=== PATIENT | female | born 1945 | race Caucasian/White ===

== ENCOUNTER → 2019-10-26 | Outpatient (CLI) | payer OTHER | LOC: M.CT 12:35 | DX: K76.0 Fatty (change of) liver, not elsewhere classified (principal); J94.8 Other specified pleural conditions; E07.89 Other specified disorders of thyroid; E04.2 Nontoxic multinodular goiter; K44.9 Diaphragmatic hernia without obstruction or gangrene; Z90.49 Acquired absence of other specified parts of digestive tract ==

== ENCOUNTER → 2020-01-20 | Outpatient (CLI) | payer OTHER | LOC: M.LAB 11:46 | DX: E04.1 Nontoxic single thyroid nodule (principal) ==

== ENCOUNTER → 2020-02-09 | Outpatient (CLI) | payer OTHER | LOC: M.RAD 13:28 | DX: R05 Cough (principal) ==

== ENCOUNTER → 2020-03-27 | Outpatient (CLI) | payer OTHER | LOC: M.LAB 13:49 | PROVIDERS: ATTEND Specialist | DX: E04.1 Nontoxic single thyroid nodule (principal) ==

== ENCOUNTER → 2020-06-09 | Outpatient (CLI) | payer OTHER | LOC: M.LAB 12:11 | PROVIDERS: ATTEND Specialist | DX: E89.0 Postprocedural hypothyroidism (principal) ==

== ENCOUNTER → 2020-07-24 | Outpatient (CLI) | payer OTHER ==
[2020-07-24 13:54] LABS: CALCIUM 8.4 mg/dL (8.5-10.1); PHOSPHORUS* 3.2 mg/dL (2.5-4.9)
== END ==
LOC: M.LAB 13:15
PROVIDERS: ATTEND Specialist
DX: Z09 Encounter for follow-up examination after completed treatment for conditions other than malignant neoplasm (principal)

== ENCOUNTER → 2020-10-27 | Outpatient (CLI) | payer OTHER | LOC: M.LAB 12:39 | PROVIDERS: ATTEND Specialist | DX: Z90.09 Acquired absence of other part of head and neck (principal) ==

== ENCOUNTER 2020-11-27 01:03 | Observation (INO) | payer OTHER ==
[~2020-11-27] VITALS: Ht 172.7 cm; Wt 88.5 kg
[2020-11-27] MEDS ORDERED: FAMOTIDINE (01:24)
[2020-11-27] MEDS ORDERED: LOSARTAN (01:24)
[2020-11-27] MEDS ORDERED: LEVOTHYROXINE (01:24)
[2020-11-27] MEDS ORDERED: TRAZODONE (01:25)
[2020-11-27 01:26] VITALS: BP 189/78
[2020-11-27 02:33] LABS: ABSOLUTE BASOPHILS 0.1 thou/uL (0.0-0.2); ABSOLUTE EOSINOPHILS 0.1 thou/uL (0.0-0.7); ABSOLUTE LYMPHOCYTES 3.4 thou/uL (0.8-5.3); ABSOLUTE MONOCYTES 0.5 thou/uL (0.0-1.2); ABSOLUTE NEUTROPHILS 4.9 thou/uL (1.6-8.1); BASOPHILS 0.6 %; EOSINOPHILS 1.6 %; HEMOGLOBIN 13.4 gm/dL (12.0-15.0); MCH 29.3 pg (26.0-34.0); MCHC 33.5 g/dL (28.0-37.0); MCV 87.5 fL (80.0-100.0); MONOCYTES 5.2 %; MPV 8.1 fl. (7.2-11.1); NUCLEATED RBCS 0 /100WBC; PLATELET COUNT* 211 thou/uL (150-400); POLYS 54.6 %; RBC 4.57 mil/uL (4.20-5.00); RDW-CV 14.4 % (10.5-14.5); WBC 8.9 thou/uL (4.0-11.0)
[2020-11-27 02:35] LABS: CALCIUM 9.4 mg/dL (8.5-10.1)
[2020-11-27 02:38] LABS: APTT 24.6 Seconds (25.0-31.3); PROTIME 10.2 Seconds (9.20-11.50)
[2020-11-27 02:39] LABS: ALBUMIN 3.9 g/dL (3.4-5.0); TOTAL BILIRUBIN 0.3 mg/dL (<0.1-1.0); TOTAL PROTEIN 8.1 g/dL (6.4-8.2)
[2020-11-27 08:27] VITALS: BP 189/86
[2020-11-27 12:30] VITALS: BP 153/57; BP 189/86
[2020-11-27 14:48] VITALS: BP 169/60
[2020-11-27 15:54] VITALS: BP 126/60
--- NOTE | 2020-11-27 17:36 | EKG ---
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 : 1945 Requested By: Lori Abebe Order Number: [id number] MD: Sami Baca Measurements Intervals [place] Rate: 80 P: -32 TN: 146 QRS: 58 QRSD: 157 T: 262 QT: 498 QTc: 575 Interpretive Statements Atrial fibrillation Right bundle branch block Abnormal T, consider ischemia, lateral leads No previous ECG available for comparison Electronically Signed On 11-27-2020 17:36:31 CDT by Sami Baca [email or web address] <ELECTRONICALLY SIGNED> By: Sami Baca MD, FACC 11/27/20 1736 0114 0114 Sami Baca MD, [facility] /EPI
--- NOTE | 2020-11-27 17:36 | EKG ---
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 Gonzales : 1945 Requested By: Lori Abebe Order Number: [id number] MD: Boubacar Walden Measurements Intervals [place] Rate: 75 P: 106 VT: 191 QRS: 52 QRSD: 148 T: 187 QT: 446 QTc: 499 Interpretive Statements Sinus rhythm with PACs Right bundle branch block Abnormal T, consider ischemia, lateral leads Compared to ECG 11/27/2020 01:14:25 No significant changes Electronically Signed On 11-27-2020 17:35:57 CDT by Boubacar Walden [email or web address] <ELECTRONICALLY SIGNED> By: Boubacar Walden MD, FAC 11/27/20 1735 4 4 Boubacar Walden MD, [facility] /EPI
--- NOTE | 2020-11-27 17:39 | EKG ---
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 : 1945 Requested By: Natasha Valle Order Number: [id number] MD: Boubacar Walden Measurements Intervals [place] Rate: 63 P: 61 PA: 182 QRS: 54 QRSD: 149 T: 184 QT: 476 QTc: 488 Interpretive Statements Sinus rhythm Atrial premature complexes Right bundle branch block Repol abnrm suggests ischemia, lateral leads Compared to ECG 11/27/2020 02:05:52 Atrial premature complex(es) now present Early repolarization now present Possible ischemia still present Electronically Signed On 11-27-2020 17:38:53 CDT by Boubacar Walden [email or web address] <ELECTRONICALLY SIGNED> By: Boubacar Walden MD, [facility] 11/27/20 1738 1254 1254 Boubacar Walden MD, [facility] /EPI
[2020-11-27 20:00] VITALS: BP 127/66
[2020-11-28] VITALS: BP 152/65
[2020-11-28 04:09] VITALS: BP 130/51
[2020-11-28 04:25] LABS: CREATININE 0.9 mg/dL (0.6-1.3); POTASSIUM 4.2 mmol/L (3.5-5.1)
[2020-11-28 04:38] LABS: HEMATOCRIT 37.6 % (37.0-47.0); HEMOGLOBIN 12.7 gm/dL (12.0-15.0); MCH 29.4 pg (26.0-34.0); MCHC 33.7 g/dL (28.0-37.0); MCV 87.2 fL (80.0-100.0); MPV 8.2 fl. (7.2-11.1); RBC 4.31 mil/uL (4.20-5.00); RDW-CV 14.3 % (10.5-14.5); WBC 6.6 thou/uL (4.0-11.0)
[2020-11-28 08:00] VITALS: BP 128/50
[2020-11-28] MEDS ORDERED: NORVASC5 MG PO (08:49)
--- NOTE | 2020-11-28 14:08 | CARDNUC ---
[place] [address] CARDIAC NUCLEAR IMAGING REPORT Name: GUERREROSEDRICK Room: [address] Abad#: [id number] Admission: 11/27/20 Attend Phys: Jonathan Noble Discharge: Date of : 47 Date of Service: 11/28/20 1407 Report #: [id number] THIS REPORT FOR: cc: Jackson Boggs MD, Tuongvan T. MD Liston, Michael J. MD [facility] ~ APPROVED REPORT Imaging Protocol: Stress Tc-99m/Rest Tc-99m 2 days Study performed: 11/27/2020 12:51:00 Indication: CHEST PAIN/ TIGHTNESS, HYPERTENSIVE URGENCY Patient Location: In-Patient Room #: 232 Stress Tech: Isela Rios Stress Nurse: Christina Moy RN Ht: 5 ft 8 in Wt: 195 lbs BSA: 2.02 m2 BMI: 29.64 Medical History Medical History: Chest pain/tightness, RBBB, Hypertensive Urgency, HTN, HLD, current smoker, strong family HX CAD-PA, anxiety/anxious, bad hip and knees with pain and weakness. Medications: AMLODIPINE, COZAAR, NTG, ASA 81MG Allergies: [facility] Cardiac Risk Factors: Age, Current Smoker, FHX of CAD, Hyperlipidemia, HTN, RBBB. Previous Cardiac Procedures: None Pretest Chest Pain Characteristics: No chest pain Exercise History: Indeterminate Physical Disabilities: Bad hip and knees with pain and weakness. Meds Held (24 hrs): NTG Resting Data Rest SPECT myocardial perfusion imaging was performed in supine position 30 minutes following the intravenous injection of 29.9 mCi of Tc-99m Sestamibi. Time of rest injection: 13:45 Date: 11/27/2020 The images were gated to evaluate regional wall motion and calculate left ventricular ejection fraction. Administration Route: [place] [address] CARDIAC NUCLEAR IMAGING REPORT Name: GUERREROSEDRICK [address] [id number] Admission: 11/27/20 Attend Phys: Jonathan Noble Discharge: Date of : 47 Date of Service: 11/28/20 1407 Report #: [id number] Pharmacologic stress test was performed by injecting Regadenoson 0.4 mg IV push over 10-15 seconds immediately followed by the intravenous injection of 35.0 mCi of Tc-99m Sestamibi. Time of stress injection: 10:25 Date: 11/28/2020 Administration Route: IV Administration Site: Left AC Heart Rate at time of stress injection: 90 bpm. Gated Stress SPECT was performed 45 minutes after stress injection. The images were gated to evaluate regional wall motion and calculate left ventricular ejection fraction. Stress Test Details Stress Test: Pharmacologic stress testing performed using 0.4 mg of regadenoson per 5 mL given IV over 10 seconds. Reason for pharmacologic stress test: Bad hip and knees with pain and weakness.. HR Max Heart Rate (APMHR): 146 bpm Resting HR: 70 bpm Target HR (85% APMHR): 124 bpm Max HR Achieved: 92 bpm % of APMHR: 63 Recovery HR: 70 bpm BP Resting BP: 135/65 mmHg Max BP: 97/46 mmHg Recovery BP: 110/55 mmHg ECG Resting ECG: Sinus Rhythm, LVH with repolarization changes Stress ECG: Sinus Rhythm, LVH with repolarization changes ST Change: None Arrhythmia: None Recovery ECG: Sinus Rhythm, LVH with repolarization changes Recovery ST Change: None Recovery Arrhythmia: None Clinical Reason for Termination: Completed protocol Stress Symptoms: labored breathing, flushed, anxious, lightheadedness. Exercise duration: 00 min 00 sec Exercise capacity: 1.00 [place] [address] CARDIAC NUCLEAR IMAGING REPORT Name: GUERREROSEDRICK M[place]illa Room: [address] MProsperRProsper#: [id number] Admission: 11/27/20 Attend Phys: Jonathan Noble Discharge: Date of : 47 Date of Service: 11/28/20 1407 Report #: [id number] The Patient Tolerated Lexiscan Infusion without Significant Cardiac Symptoms. Nurse Comments A 75 year old female inpatient presented for a sitting Lexiscan Nuclear Stress test. Test well tolerated. Recovery unremarkable. Patient was stable and stated she felt good when escorted to Nuclear Medicine for imaging. Stress ECG Conclusion The baseline twelve-lead EKG shows sinus rhythm. There is left ventricular hypertrophy with repolarization abnormality noted. EKGs obtained during and post Lexiscan infusion show sinus rhythm with no significant ST segment changes when compared to baseline. There were no stress-induced arrhythmias. Study Quality Study: Good Artifact: No artifact Lung Uptake: Normal Study Data At rest, the left ventricular ejection fraction was 75%.. Post stress, the left ventricular ejection was 74%.. Perfusion The rest and stress images show normal perfusion. Wall Motion The rest and stress images show normal left ventricular wall motion. Nuclear Conclusion ECG Findings: non-diagnostic Clinical Findings: negative for ischemia Nuclear Findings: negative for ischemia Exercise Capacity: not assessed Left Ventricular Function: normal Risk Study: low Perfusion study showed no defect to suggest infarct or ischemia. Left ventricular systolic function appears normal on gated studies. This is a low risk study. <Conclusion> The baseline twelve-lead EKG shows sinus rhythm. [place] [address] CARDIAC NUCLEAR IMAGING REPORT Name: SEDRICK MASTERS Room: [address] Abad#: [id number] Admission: 11/27/20 Attend Phys: Jonathan Noble Discharge: Date of : 47 Date of Service: 11/28/20 1407 Report #: [id number] ventricular hypertrophy with repolarization abnormality noted. EKGs obtained during and post Lexiscan infusion show sinus rhythm with no significant ST segment changes when compared to baseline. There were no stress-induced arrhythmias. <ELECTRONICALLY SIGNED> By: Sami Baca MD, FACC 11/28/20 1407 06 140 Sami Baca MD, FACC /INF
[2020-11-28 14:29] VITALS: BP 165/74
== END 2020-11-28 14:15 | disposition home or self-care (01) ==
LOC: M.ERS 01:03 → M.TBA-ER 04:31 → M.2W 04:31
PROVIDERS: Family Medicine; Personal Emergency Response Attendant; ADMIT Family Medicine; ATTEND Family Medicine
DX: I20.9 Angina pectoris, unspecified (principal); I10 Essential (primary) hypertension; E78.5 Hyperlipidemia, unspecified; F17.200 Nicotine dependence, unspecified, uncomplicated; Z79.899 Other long term (current) drug therapy; Z20.822 Contact with and (suspected) exposure to COVID-19

== ENCOUNTER → 2020-12-18 | Outpatient (CLI) | payer OTHER ==
[~2020-12-18] MED LIST: FAMOTIDINE; LEVOTHYROXINE; LOSARTAN; NORVASC5 MG PO; TRAZODONE
== END ==
LOC: M.RAD 13:24
PROVIDERS: ATTEND Nurse Practitioner Family
DX: M85.88 Other specified disorders of bone density and structure, other site (principal); N95.9 Unspecified menopausal and perimenopausal disorder